=== PATIENT | female | born 1940 | race Caucasian/White ===

== ENCOUNTER 2017-03-15 11:50 | Emergency (ER) | payer OTHER, MEDICARE ==
[~2017-03-15] VITALS: Ht 157.5 cm; Wt 56.7 kg
[~2017-03-15 11:50] MED LIST: ANTIVERT 12.512.5 MG PO
[2017-03-15 12:00] VITALS: BP 161/94
[2017-03-15] MEDS ORDERED: AMOXICILLIN875 M1 PO (12:31)
--- NOTE | 2017-03-15 12:38 | ED THROAT/DENTAL COMPLAINT ---
History of Present Illness General Chief Complaint: Sore Throat, Dental Pain Stated Complaint: FACIAL SWELLING, S/P TOOTH EXTRACTION Source: patient Exam Limitations: no limitations Vital Signs & Intake/Output Vital Signs & Intake/Output Vital Signs Date Time Temp Pulse Resp B/P B/P Pulse O2 O2 Flow FiO2 Mean Ox Delivery Rate 03/15 1200 98.6 76 18 161/94 98 Room Air Allergies Coded Allergies: celery (UNKNOWN 03/15/17) Reconcile Medications Amoxicillin 875 MG TABLET 1 TAB PO BID TOOTH PAIN Triage Note: 76 YO FEMALE TO TRIAGE STATING SHE HAD A TOOTH PULLED A COUPLE DAYS AGO, STATES NOW HER UPPER LIP FEELS SWOLLEN, PT NOTED WITH ?BLISTER UNDERNEATH L EYE THAT IS PAINFUL TO PT. AFEBRILE AT THIS TIME Triage Nurses Notes Reviewed? yes Onset: Abrupt Duration: day(s): Timing: recent history Injury Environment: home No Modifying Factors: none HPI: 76-year-old female comes into emergency room with complaints of dental pain to upper teeth. Patient had a left upper molar extraction this past Friday. Patient has a history of poor dentition and dental caries and needs multiple teeth extracted. She denies any fever. She reports some mild swelling underneath her left eye. Denies any vomiting. Denies any other associated symptoms. Sharp throbbing pain. Continuous. Patient was not started on antibiotics. (LINDA ROSENTHAL) Past History Travel History Traveled to [place] past 21 day No Medical History Any Pertinent Medical History? see below for history Neurological: NONE EENT: NONE Cardiovascular: NONE Respiratory: NONE Gastrointestinal: NONE Hepatic: NONE Renal: NONE Musculoskeletal: NONE Psychiatric: NONE Endocrine: DIABETIC Blood Disorders: NONE Cancer(s): NONE PHOTO ENGRAVER/Reproductive: NONE History of MRSA: No History of VRE: No History of CDIFF: No Influenza Vaccine: 07/06/08 Surgical History Surgical History: non-contributory Psychosocial History Who do you live with Patient/Self What is your primary language Turkmen Tobacco Use: Never used Family History Family History, If Any: MOTHER (chf, dm). FATHER (non contributory). Hx Contributory? No (LINDA ROSENTHAL) Review of Systems Review of Systems Constitutional: Reports: no symptoms. EENTM: Reports: see HPI. Respiratory: Reports: no symptoms. Cardiovascular: Reports: no symptoms. GI: Reports: no symptoms. Genitourinary: Reports: no symptoms. Musculoskeletal: Reports: no symptoms. Skin: Reports: no symptoms. Neurological/Psychological: Reports: no symptoms. Hematologic/Endocrine: Reports: no symptoms. Immunologic/Allergic: Reports: no symptoms. All Other Systems: Reviewed and Negative (LINDA ROSENTHAL) Physical Exam Physical Exam General Appearance: well developed/nourished, alert, awake Head: atraumatic, Small amount of edema under left eye, no erythema, no warmth, no fluctuance, Eyes: Bilateral: normal appearance, EOMI. Nose: normal inspection Mouth/Throat: poor dentition, teeth yellow, multiple broken teeth, small cut to upper gumline, no abscess appreciated, gums inflamed, Neck: normal inspection Cardiovascular/Respiratory: no respiratory distress Back: normal inspection Neurologic/Psych: awake, alert, oriented x 3 Skin: intact, normal color Core Measures ACS in differential dx? No Severe Sepsis Present: No Septic Shock Present: No (LINDA ROSENTHAL) Progress Differential Diagnosis: aspirated tooth, carious tooth, epiglottitis, Ludwigs angina, meningitis, odontogenic abscess, veena-tonsillar abscess, pharyngeal for. body, stomatitis/gingivitis, strep pharyngitis, tooth fracture, dental caries, dental abscess, Plan of Care: 03/15/2017 1:49:45 PM patient started on oral antibiotics for a possible dental infection. Follow back up with dentist. Return if any other concerns. Clinically looks well. Case discussed with Dr. Trammell. (LINDA ROSENTHAL) Departure Departure Disposition: HOME OR SELF CARE Condition: Stable Clinical Impression Primary Impression: Pain, dental Secondary Impressions: Dental caries Referrals: AUSTIN RUIZ MD (PCP/Family) Additional Instructions: Take amoxicillin as prescribed. Follow-up with dentist. Return if any concerns worsening symptoms. Please go over all results of today's visit with your primary care doctor. Contact your primary care doctor to let them know you were here in the emergency room. There may be nonspecific findings which may not be related to your visit today here in the emergency room but may require further evaluation and chronic monitoring by your primary care doctor. If you had a laceration today the chance of foreign body always remains. You should follow-up with your primary care doctor for recheck in 3-5 days for a wound check. If you had an x-ray done there is a chance that a fracture could have been missed on initial read and you should follow-up with your primary care doctor for repeat x-rays if symptoms persist. If your blood pressure was elevated here in the emergency room please have rechecked by her primary care doctor within the next 48 hours by your primary care doctor. If you were prescribed a narcotic here in the emergency room or any type of controlled substances you're not allowed to drive while taking this medication or operate any type of heavy machinery. Narcotics can make you feel lightheaded dizziness nausea and can cause constipation. You may need to bead picker a stool softener. Thank you for choosing [facility] emergency room. Please return to the emergency room immediately if you have any other concerns worsening of symptoms. Departure Forms: Customer Survey General Discharge Information Prescriptions: Current Visit Scripts Amoxicillin 1 TAB PO BID #14 TAB (LINDA ROSENTHAL) PA/QUALITY SYSTEMS ENGINEER Co-Sign Statement Statement: ED Attending supervision documentation- [X] I saw and evaluated the patient. I have also reviewed all the pertinent lab results and diagnostic results. I agree with the findings and the plan of care as documented in the PA's/QUALITY SYSTEMS ENGINEER's documentation. [X] I have reviewed the ED Record and agree with the PA's/QUALITY SYSTEMS ENGINEER's documentation. [] Additions or exceptions (if any) to the PAs/QUALITY SYSTEMS ENGINEER's note and plan are summarized below: [] (DARIA MCCARTY,MICHAEL Sharp)
== END 2017-03-15 12:52 ==
LOC: ERH 11:50
DX: K08.89 Other specified disorders of teeth and supporting structures (principal); K02.9 Dental caries, unspecified